=== PATIENT | female | born 1950 | race Caucasian/White ===

== ENCOUNTER 2016-06-06 11:15 | Emergency (ER) | END 2016-06-06 18:55 | disposition home or self-care (01) | DX: R42 Dizziness and giddiness (principal); I10 Essential (primary) hypertension; I95.1 Orthostatic hypotension; E11.9 Type 2 diabetes mellitus without complications; R07.9 Chest pain, unspecified; Z79.84 Long term (current) use of oral hypoglycemic drugs; Z79.82 Long term (current) use of aspirin; Z79.4 Long term (current) use of insulin | CPT/HCPCS: 70450; 71010; 80053; 84484; 85025; 85610; 85730; 93005; J2405; J7030 ==

== ENCOUNTER 2016-12-01 11:03 | Emergency (ER) | payer OTHER, MEDICAID ==
[~2016-12-01] VITALS: Wt 61.5 kg
[~2016-12-01 11:03] MED LIST: ASPI-664 PO; ATOR20TA38 PO; DIAZ-90 PO; GLIP-95 PO; LANT3I SC; LOSA25TA5 PO; MECL12.574 PO; NATE60TA PO; ONDA4TAB8 PO; SITA1TAB7 PO
[2016-12-01] MEDS ORDERED: NAPR-260 PO (12:56)
[2016-12-01] MEDS ORDERED: HYDR-906 PO (12:56)
--- NOTE | 2016-12-01 13:02 | ERD ---
ER Documentation Chief Complaint Date/Time DATE: 12/01/16 TIME: 12:58 Chief Complaint BILAT FOOT PAIN X1 MONTH, NO INJURY HPI This is a 66-year-old female presents to the ER with bilateral heel pain for the last month. Patient states she is currently seeing a inseamer and is being treated by him. She has tried new shoes, arch support and has been given shots. Patient states that heel pain continues. Patient works on her feet all day. She denies any fevers or chills. She denies any numbness or tingling of her feet. She has not had any trauma to the area. Pain is described as throbbing in quality it is nonradiating. She has not tried any pain medication. ROS 12 point review of systems was done, all negative except per HPI. Medications Home Meds Active Scripts Naproxen* (Naprosyn*) 500 Mg Tablet, 500 MG PO BID Y for PAIN AND/OR INFLAMMATION, #30 TAB Prov:AMIE GE 12/01/16 Hydrocodone/Acetaminophen (Loma 5-325 Tablet) 1 Each Tablet, 1 TAB PO Q6H Y for PAIN, #20 TAB Prov:AMIE GE 12/01/16 Diazepam* (Valium*) 5 Mg Tablet, 5 MG PO Q8 Y for ANXIETY, #12 TAB 0 Refills Prov:NENITA BOOTH 06/06/16 Ondansetron Hcl* (Zofran*) 4 Mg Tablet, 4 MG PO Q8H Y for NAUSEA AND/OR VOMITING , #20 TAB 0 Refills Prov:NENITA BOOTH 06/06/16 Meclizine Hcl* (Antivert*) 12.5 Mg Tab, 25 MG PO Q6H Y for DIZZINESS, #20 TAB 0 Refills Prov:NENITA BOOTH 06/06/16 Reported Medications Insulin Glargine* (Lantus*) 100 Unit/Ml Soln, 25 UNIT SC DAILY, #1 VIAL 06/06/16 Atorvastatin Calcium* (Atorvastatin Calcium*) 20 Mg Tablet, 20 MG PO QHS, #30 TAB 06/06/16 Losartan Potassium* (Losartan Potassium*) 25 Mg Tablet, 25 MG PO DAILY, TAB 06/06/16 Nateglinide* (Nateglinide*) 60 Mg Tablet, 60 MG PO AC MEALS Y for TID, TAB 06/06/16 Aspirin* (Aspirin* EC) 81 Mg Tablet.dr, 81 MG PO DAILY, TAB 06/06/16 Glipizide* (Glipizide*) 10 Mg Tablet, 20 MG PO BID, TAB 05/27/15 Sitagliptin Phos-Metformin Hcl (Janumet) 50-1,000 Mg Tablet, 1 TAB PO BID WITH MEALS, #60 TAB 05/27/15 Allergies Allergies: Coded Allergies: No Known Allergy (Unverified , 06/06/16) PMhx/Soc History of Surgery: Yes (hysterrectomy, csect x1, r. ovary removed) Hx Cardiac Disorders: Yes (hypertension; hypercholesterolemia) Hx Miscellaneous Medical Probl: Yes (diabetes mellitus) Hx Alcohol Use: No Hx Substance Use: No Hx Tobacco Use: No Smoking Status: Never smoker Physical Exam Vitals Vital Signs Date Time Temp Pulse Resp B/P Pulse Ox O2 Delivery O2 Flow Rate FiO2 12/01/16 11:08 98.2 99 17 175/74 99 Physical Exam GENERAL: The patient is well developed and appropriate for usual state of health , in no apparent distress. HEENT: Atraumatic. CHEST: Clear to auscultation bilaterally. There are no rales, wheezes or rhonchi. HEART: Regular rate and rhythm. No murmurs, clicks, rubs or gallops. EXTREMITIES: Equal pulses bilaterally. There is no peripheral clubbing, cyanosis or edema. No focal swelling or erythema. Full range of motion. Grossly neurovascularly intact. Patient is tender to palpation to the plantar calcaneous. There is no erythema, edema, areas of ecchymosis, redness or warmth to the touch. + 2 pulses. NEURO: Alert and oriented Procedures/MDM This is a 66-year-old female presents to the ER for bilateral heel pain over the last month. Patient is currently being seen by a inseamer, at this time I do not believe that x-ray imaging is needed as she does not have a history of trauma and pain has been going on for a month now. Likely not an acute fracture or dislocation. Suspicion for osteomyelitis is low as patient is afebrile, well-appearing is able to walk without any problems on her feet. She may have a heel spur, however this can be diagnosed with an outpatient basis. Patient will be sent home with Loma with ibuprofen. She is to follow-up with her primary care doctor within 1-2 days return to ER sooner if symptoms worsen. My medical decision making sure with the patient and her they both understand and agree with plan. Departure Diagnosis: Primary Impression: Heel pain Condition: Stable Patient Instructions: Understanding Heel Pain Additional Instructions: Llame al doctor MAANA y urszula candice CIRA PARA DENTRO DE 1-2 BURCIAGA.Dgale a la secretaria que nosotros le instruimos hacer esta cira.Avise o llame si benjamin condicin se empeora antes de la cira. Regresa aqui si peor o no mejor. AMIE GE Dec 01, 2016 13:02
[2016-12-01 13:12] VITALS: BP 163/71; PULSE 72; RESP 16; TEMP 98.4
== END 2016-12-01 13:22 | disposition home or self-care (01) ==
LOC: FTE 11:03
DX: M79.671 Pain in right foot (principal); M79.672 Pain in left foot; I10 Essential (primary) hypertension; E11.9 Type 2 diabetes mellitus without complications; Z79.4 Long term (current) use of insulin; Z79.82 Long term (current) use of aspirin; Z79.84 Long term (current) use of oral hypoglycemic drugs
CPT/HCPCS: 99283

== ENCOUNTER 2018-03-25 09:36 | Emergency (ER) | payer MEDICAID, OTHER ==
[~2018-03-25] VITALS: Ht 165.1 cm; Wt 58.3 kg
[~2018-03-25 09:36] MED LIST changes: -ASPI-664 PO; +ASPI-817 PO; -DIAZ-90 PO; +DIAZ5TAB PO; -GLIP-95 PO; +GLIP10TA14 PO; +HYDR-4011 PO; -LOSA25TA5 PO; +LOSA25TA6 PO; +NAPR-985 PO
[2018-03-25 09:38] VITALS: BP 185/81; PULSE 99; RESP 18; Ht 165.1 cm; Wt 58.3 kg
--- NOTE | 2018-03-25 10:42 | ERD ---
ER Documentation Chief Complaint Chief Complaint right eye pain,redness,itching x 3days HPI 68-year-old female, with history of diabetes, presents to the emergency department, complaining of 3 days with worsening of right eye erythema, itching and yellowish discharge. She denies blurred vision, no ocular trauma. No medications taken at this time. ROS All systems reviewed and are negative except as per history of present illness. Medications Home Meds Active Scripts Ibuprofen* (Motrin*) 400 Mg Tab, 400 MG PO Q8, #15 TAB Prov:HIEU HALL MD 03/25/18 Dexamethasone* Ophth (Dexamethasone* Ophth) 0.1%-5 Ml Drops, 1 DROP RIGHT EYE Q4 for 7 Days, EA Prov:HIEU HALL MD 03/25/18 Tobramycin Sulfate* (Tobramycin Sulfate*) 0.3% - 5 Ml Drops, 1 DROP RIGHT EYE QID for 7 Days, EA Prov:HIEU HALL MD 03/25/18 Naproxen* (Naprosyn*) 500 Mg Tablet, 500 MG PO BID PRN for PAIN AND/OR INFLAMMATION, #30 TAB Prov:AMIE GE 12/01/16 Hydrocodone/Acetaminophen (Keeling 5-325 Tablet) 1 Each Tablet, 1 TAB PO Q6H PRN for PAIN, #20 TAB Prov:AMIE GE 12/01/16 Diazepam* (Valium*) 5 Mg Tablet, 5 MG PO Q8 PRN for ANXIETY, #12 TAB 0 Refills Prov:NENITA BOOTH 06/06/16 Ondansetron Hcl* (Zofran*) 4 Mg Tablet, 4 MG PO Q8H PRN for NAUSEA AND/OR VOMITING, #20 TAB 0 Refills Prov:NENITA BOOTH 06/06/16 Meclizine Hcl* (Antivert*) 12.5 Mg Tab, 25 MG PO Q6H PRN for DIZZINESS, #20 TAB 0 Refills Prov:NENITA BOOTH 06/06/16 Reported Medications Insulin Glargine* (Lantus*) 100 Unit/Ml Soln, 25 UNIT SC DAILY, #1 VIAL 06/06/16 Atorvastatin Calcium* (Atorvastatin Calcium*) 20 Mg Tablet, 20 MG PO QHS, #30 TAB 06/06/16 Losartan Potassium* (Losartan Potassium*) 25 Mg Tablet, 25 MG PO DAILY, TAB 06/06/16 Nateglinide* (Nateglinide*) 60 Mg Tablet, 60 MG PO AC MEALS PRN for TID, TAB 06/06/16 Aspirin* (Aspirin* EC) 81 Mg Tablet.dr, 81 MG PO DAILY, TAB 06/06/16 Glipizide* (Glipizide*) 10 Mg Tablet, 20 MG PO BID, TAB 05/27/15 Sitagliptin Phos-Metformin Hcl (Janumet) 50-1,000 Mg Tablet, 1 TAB PO BID WITH MEALS, #60 TAB 05/27/15 Allergies Allergies: Coded Allergies: No Known Allergy (Unverified , 06/06/16) PMhx/Soc History of Surgery: Yes (hysterrectomy, csect x1, r. ovary removed) Hx Cardiac Disorders: Yes (hypertension; hypercholesterolemia) Hx Miscellaneous Medical Probl: Yes (diabetes mellitus) Hx Alcohol Use: No Hx Substance Use: No Hx Tobacco Use: No Smoking Status: Never smoker FmHx Family History: diabetes Physical Exam Vitals Vital Signs Date Temp Pulse Resp B/P (MAP) Pulse Ox O2 O2 Flow FiO2 Time Delivery Rate 03/25/18 97.3 99 18 185/81 98 09:38 (115) Physical Exam Patient alert, oriented, vital signs stable. HEENT: Normocephalic, atraumatic. EYES: PERRLA, EOMI, OD: With a sclera and conjunctiva injected and yellowish discharge. No foreign body seen. Anterior chamber clear. Contralateral eye normal. EARS: Canals clear, tympanic membranes WNL. THROAT: Normal oropharynx. NECK: Supple, No lymphadenopathy. Full ROM without pain or tenderness. HEART: RRR, no rubs, murmurs, clicks or gallops. LUNGS: Clear to auscultation. ABDOMEN: Soft, non-tender without masses or hepatosplenomegaly. EXTREMITIES: No edema bilaterally. BACK: Full ROM, no deformity, normal back exam NEURO: Cranial nerves grossly intact, no motor or sensory deficit Procedures/MDM Differential diagnosis include but not limited to: infection bacterial/viral/fungal, iritis, scleritis, corneal abrasion, allergies, foreign body, glaucoma. Physical examination and clinical presentation consistent most likely with acute bacterial conjunctivitis. During the ED course the patient remained stable, no new complaints. Clinical impression discussed with patient who agrees with management. The patient is stable to be treated outpatient and will be discharged home; Some side effects of prescribed medications (headache, rash, nausea, vomiting, diarr hea, interactions with other medications) were reviewed. The patient was instructed to follow up with the primary care provider in the next 48h. If symptoms persist, worsen or new symptoms develop, then patient should return to the ED immediately. Disclaimer: Inadvertent spelling and grammatical errors are likely due to EHR/dictation software use and do not reflect on the overall quality of patient care. Also, please note that the electronic time recorded on this note does not necessarily reflect the actual time of the patient encounter. Departure Diagnosis: Primary Impression: Conjunctivitis, right eye Condition: Stable Additional Instructions: Muchas vinod por [facility] para benjamin servicio. Esperamos que en benjamin visita a la jenny de emergencia benjamin problema medico haya sido solucionado y que se sienta mucho mejor. Para estar seguros que benjamin mejoria sigue en proceso, le pedimos el favor de hacer candice caitlin de seguimiento medico con benjamin doctor primario en los proximos 2-4 gonzalez. Lleve con usted estos documentos y las medicinas recetadas. Si isaías sintomas empeoran, NO SE ESPERE, por favor regrese a jenny de emergencia INMEDIATAMENTE. En huber que usted no tenga un mdico de atencin primaria: Llame al mdico o clnica comunitaria de referencia que aparece abajo salina las horas de consultorio para hacer candice caitlin para que le vean. CLINICAS: [facility] [phone] [facility] [phone] [facility] [phone] [facility] [phone] [place] [id number] [phone] [facility]. [phone] HIEU HAWKINS MD Mar 25, 2018 10:42
[2018-03-25] MEDS ORDERED: IBUP-1561 PO (10:46)
[2018-03-25] MEDS ORDERED: DEXA5DRO11 RIGHT EYE (10:46)
[2018-03-25] MEDS ORDERED: TOBR5DRO6 RIGHT EYE (10:46)
== END 2018-03-25 10:57 | disposition home or self-care (01) ==
LOC: FTE 09:36
DX: H10.9 Unspecified conjunctivitis (principal); E11.9 Type 2 diabetes mellitus without complications; I10 Essential (primary) hypertension; Z79.4 Long term (current) use of insulin; Z79.82 Long term (current) use of aspirin
CPT/HCPCS: 99283

== ENCOUNTER 2018-11-27 18:37 | Emergency (ER) | payer BC, OTHER ==
[~2018-11-27] VITALS: Ht 157.5 cm; Wt 56.2 kg
[~2018-11-27 18:37] MED LIST changes: +DEXA5DRO11 RIGHT EYE; +FAMO-96 PO; +IBUP-1561 PO; +IBUP800T48 PO; +LOSA25TA12 PO; -LOSA25TA6 PO; +TOBR5DRO6 RIGHT EYE
[2018-11-27 18:39] VITALS: Ht 157.5 cm; Wt 56.2 kg
[2018-11-27] MEDS ORDERED: HYDROCODONE/APAP (5/325) TAB PO ONE (21:00)
[2018-11-27] MEDS ORDERED: FAMOTIDINE 20 MG TAB PO ONE (21:00)
[2018-11-27 22:22] VITALS: BP 142/64; PULSE 75; RESP 18
== END 2018-11-27 22:23 | disposition home or self-care (01) ==
LOC: FTE 18:37
DX: K80.20 Calculus of gallbladder without cholecystitis without obstruction (principal)
CPT/HCPCS: 99283